=== PATIENT | male | born 1945 | race Caucasian/White ===

== ENCOUNTER → 2017-01-11 | Outpatient (CLI) | payer MEDICARE ==
[~2017-01-11] MED LIST: AMLO1CAP3 PO
== END | disposition home or self-care (01) ==
LOC: RAD 10:39
PROVIDERS: ATTEND Specialist
DX: J98.11 Atelectasis (principal); C43.71 Malignant melanoma of right lower limb, including hip
CPT/HCPCS: 71020

== ENCOUNTER → 2017-07-16 | Outpatient (CLI) | payer MEDICARE | LOC: RAD 09:09 | PROVIDERS: ATTEND Specialist | DX: C43.71 Malignant melanoma of right lower limb, including hip (principal) | CPT/HCPCS: 71046 ==

== ENCOUNTER → 2017-11-19 | Outpatient (CLI) | payer MEDICARE ==
[~2017-11-19] MED LIST changes: +OMNIPAQUE 350 MG/ML, 100ML BOTTLE ONE
== END | disposition home or self-care (01) ==
LOC: CFH 09:09
PROVIDERS: ATTEND Specialist
DX: C43.71 Malignant melanoma of right lower limb, including hip (principal); K76.89 Other specified diseases of liver; K40.90 Unilateral inguinal hernia, without obstruction or gangrene, not specified as recurrent
CPT/HCPCS: 74177; 82565; Q9967

== ENCOUNTER 2018-08-26 10:39 | Outpatient (CLI) | payer MEDICARE ==
[~2018-08-26 10:39] MED LIST changes: +LIDOCAINE-MPF 1%, 5ML ONE; -OMNIPAQUE 350 MG/ML, 100ML BOTTLE ONE
== END 2018-08-26 23:59 | disposition home or self-care (01) ==
LOC: RAD 10:39
PROVIDERS: ATTEND Internal Medicine Hematology & Oncology
DX: C96.9 Malignant neoplasm of lymphoid, hematopoietic and related tissue, unspecified (principal)
CPT/HCPCS: 38505; 76942; 88305; 88341; 88342

== ENCOUNTER → 2018-09-01 | Outpatient (CLI) | payer MEDICARE ==
[~2018-09-01] MED LIST changes: -LIDOCAINE-MPF 1%, 5ML ONE; +OMNIPAQUE 350 MG/ML, 150 ML BOTTLE ONE
[2018-09-01 11:15] LABS: CREATININE 1.26 mg/dL (0.7-1.3)
== END | disposition home or self-care (01) ==
LOC: RAD 10:40
PROVIDERS: ATTEND Internal Medicine Hematology & Oncology
DX: C43.71 Malignant melanoma of right lower limb, including hip (principal); K40.90 Unilateral inguinal hernia, without obstruction or gangrene, not specified as recurrent
CPT/HCPCS: 36415; 70491; 71260; 74177; 82565; Q9967

== ENCOUNTER → 2018-10-07 | Outpatient (CLI) | payer MEDICARE ==
[~2018-10-07] MED LIST changes: -OMNIPAQUE 350 MG/ML, 150 ML BOTTLE ONE
== END | disposition home or self-care (01) ==
LOC: PETCFH 13:58
PROVIDERS: ATTEND Surgery
DX: C43.71 Malignant melanoma of right lower limb, including hip (principal); K76.89 Other specified diseases of liver; N28.1 Cyst of kidney, acquired; R59.0 Localized enlarged lymph nodes; K40.90 Unilateral inguinal hernia, without obstruction or gangrene, not specified as recurrent; M13.89 Other specified arthritis, multiple sites; Z85.820 Personal history of malignant melanoma of skin
CPT/HCPCS: 78816; A9552

== ENCOUNTER 2018-10-21 09:41 | Day surgery (SDC) | payer MEDICARE ==
[~2018-10-21] VITALS: Ht 177.8 cm; Wt 107.6 kg
[~2018-10-21 09:41] MED LIST changes: +LIDOCAINE-MPF 1%, 5ML ONE
[2018-10-21] MEDS ORDERED: LACTATED RINGERS 1,000 ML IV SCH ×2 (10:18→12:36)
[2018-10-21] MEDS ORDERED: BUPIVACAINE/EPI 0.5% 1:200K ONE (10:31)
[2018-10-21] MEDS ORDERED: MIDAZOLAM 1 MG/ML, 2ML ONE (10:49)
[2018-10-21] MEDS ORDERED: FENTANYL PF 100 MCG/2ML ONE ×3 (10:49→13:03)
[2018-10-21] MEDS ORDERED: ROCURONIUM 10MG/ML,5ML ONE (10:52)
[2018-10-21] MEDS ORDERED: SUCCINYLCHOLINE 20 MG/ML, 10ML ONE (10:52)
[2018-10-21 11:33] VITALS: BP 147/85
[2018-10-21] MEDS ORDERED: OXYcodone 5 MG/5 ML ORAL.SOL UDC PO PRN (12:30)
[2018-10-21] MEDS ORDERED: ONDANSETRON 2MG/ML, 2ML IV PRN (12:30)
[2018-10-21] MEDS ORDERED: LABETALOL 5MG/ML, 20ML IV PRN (12:30)
[2018-10-21] MEDS ORDERED: hydrALAzine 20 MG/ML, 1ML IV PRN (12:30)
[2018-10-21] MEDS ORDERED: METOPROLOL 1 MG/ML, 5ML IV PRN (12:30)
[2018-10-21] MEDS ORDERED: ACETAMINOPHEN 325 MG TABLET PO PRN (12:30)
[2018-10-21] MEDS ORDERED: ALBUTEROL/IPRATROPIUM 2.5MG/0.5MG, 3 ML NPPB PRN (12:30)
[2018-10-21] MEDS ORDERED: NEOSPORIN OINT, 15GM ONE (12:30)
[2018-10-21] MEDS ORDERED: MEPERIDINE/PF 25MG/0.5ML IVPush PRN (12:30)
[2018-10-21] MEDS ORDERED: LORazepam 2 MG/ML, 1ML IVPush PRN (12:30)
[2018-10-21] MEDS ORDERED: HYDROmorphone 2 MG/ML, 1ML IVPush PRN ×2 (12:30→14:00)
[2018-10-21] MEDS: FENTANYL PF 100 MCG/2ML IV PRN ×3 (12:51→13:05)
[2018-10-21] MEDS ORDERED: morphine SULFATE 10 MG/ML, 1ML IVPush PRN (13:00)
[2018-10-21] MEDS ORDERED: ONDANSETRON 2MG/ML, 2ML IVPush PRN (13:00)
[2018-10-21] MEDS ORDERED: CEFAZOLIN 1,000 MG ONE (16:12)
== END 2018-10-21 14:35 | disposition home or self-care (01) ==
LOC: OUT 09:41
PROVIDERS: ATTEND Surgery
DX: C77.4 Secondary and unspecified malignant neoplasm of inguinal and lower limb lymph nodes (principal); I10 Essential (primary) hypertension; Z79.899 Other long term (current) drug therapy; Z85.820 Personal history of malignant melanoma of skin; Z80.0 Family history of malignant neoplasm of digestive organs; Z98.890 Other specified postprocedural states
CPT/HCPCS: 38531; 74018; 76942; 88305; 88341; 88342; 93005; J0330; J0690; J2250; J3010; J7120

== ENCOUNTER 2018-11-17 08:07 | Outpatient (CLI) | payer MEDICARE ==
[~2018-11-17 08:07] MED LIST changes: -LIDOCAINE-MPF 1%, 5ML ONE
== END 2018-11-17 23:59 | disposition home or self-care (01) ==
LOC: ROC 08:07
PROVIDERS: ATTEND Radiology Radiation Oncology
DX: C43.71 Malignant melanoma of right lower limb, including hip (principal); I10 Essential (primary) hypertension; Z86.14 Personal history of Methicillin resistant Staphylococcus aureus infection; Z98.890 Other specified postprocedural states; Z79.899 Other long term (current) drug therapy
CPT/HCPCS: G0463

== ENCOUNTER 2018-11-26 09:57 | Day surgery (SDC) | payer MEDICARE | END 2018-11-26 23:59 | disposition home or self-care (01) | LOC: RAD 09:57 | PROVIDERS: ATTEND Radiology Radiation Oncology | DX: L08.89 Other specified local infections of the skin and subcutaneous tissue (principal); G31.9 Degenerative disease of nervous system, unspecified; C43.72 Malignant melanoma of left lower limb, including hip | CPT/HCPCS: 10005; 70553; 88173; A9585; 76942 ==

== ENCOUNTER 2019-05-29 08:08 | Outpatient (CLI) | payer MEDICARE ==
[2019-05-29] MEDS ORDERED: OMNIPAQUE 350 MG/ML, 100ML BOTTLE ONE (16:12)
== END 2019-05-29 23:59 | disposition home or self-care (01) ==
LOC: CFH 08:08
PROVIDERS: ATTEND Internal Medicine Hematology & Oncology
DX: C43.71 Malignant melanoma of right lower limb, including hip (principal); C77.4 Secondary and unspecified malignant neoplasm of inguinal and lower limb lymph nodes; K40.90 Unilateral inguinal hernia, without obstruction or gangrene, not specified as recurrent; K76.89 Other specified diseases of liver; N28.1 Cyst of kidney, acquired; N40.0 Benign prostatic hyperplasia without lower urinary tract symptoms
CPT/HCPCS: 71260; 74177; Q9967

== ENCOUNTER → 2020-06-24 | Outpatient (CLI) | payer MEDICARE ==
[~2020-06-24] MED LIST changes: +OMNIPAQUE 350 MG/ML, 100ML BOTTLE ONE
== END | disposition home or self-care (01) ==
LOC: CFH 07:32
PROVIDERS: ATTEND Internal Medicine Hematology & Oncology
DX: Z51.12 Encounter for antineoplastic immunotherapy (principal); C43.71 Malignant melanoma of right lower limb, including hip; C77.4 Secondary and unspecified malignant neoplasm of inguinal and lower limb lymph nodes; R91.1 Solitary pulmonary nodule; J20.9 Acute bronchitis, unspecified; N42.9 Disorder of prostate, unspecified; Z79.899 Other long term (current) drug therapy
CPT/HCPCS: 71260; 74177; Q9967

== ENCOUNTER 2021-02-03 12:51 | Outpatient (CLI) | payer MEDICARE ==
[~2021-02-03 12:51] MED LIST changes: -OMNIPAQUE 350 MG/ML, 100ML BOTTLE ONE
[2021-02-03] MEDS ORDERED: OMNIPAQUE 350 MG/ML, 100ML BOTTLE ONE (13:00)
== END 2021-02-03 23:59 | disposition home or self-care (01) ==
LOC: CFH 12:51
PROVIDERS: ATTEND Internal Medicine Hematology & Oncology
DX: C77.4 Secondary and unspecified malignant neoplasm of inguinal and lower limb lymph nodes (principal); C43.71 Malignant melanoma of right lower limb, including hip; N28.1 Cyst of kidney, acquired; K40.90 Unilateral inguinal hernia, without obstruction or gangrene, not specified as recurrent; J20.9 Acute bronchitis, unspecified; N42.9 Disorder of prostate, unspecified; R91.1 Solitary pulmonary nodule; K76.89 Other specified diseases of liver; M51.36 Other intervertebral disc degeneration, lumbar region; N40.0 Benign prostatic hyperplasia without lower urinary tract symptoms; Z79.899 Other long term (current) drug therapy; Z51.12 Encounter for antineoplastic immunotherapy
CPT/HCPCS: 71260; 74177; 82565; Q9967